=== PATIENT | male | born 1985 | race Two or more races ===

== ENCOUNTER 2019-01-03 11:01 | Emergency (ER) | payer MEDICAID ==
[~2019-01-03] VITALS: Ht 170.2 cm; Wt 74.8 kg
[2019-01-03] MEDS ORDERED: NKM (11:33)
[2019-01-03 11:36] VITALS: BP 104/64
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
[2019-01-03] MEDS ORDERED: BACITRACIN-P28.35 GM TP (12:26)
[2019-01-03] MEDS ORDERED: CEPHALEXIN500 MG ORAL (12:26)
[2019-01-03] MEDS ORDERED: Bacitracin Oint UD TOPIC ONE (12:30)
[2019-01-03 12:31] VITALS: BP 124/85
== END 2019-01-03 12:31 | disposition home or self-care (01) ==
LOC: EMR 11:45
DX: Z48.02 Encounter for removal of sutures (principal)
CPT/HCPCS: 99281